=== PATIENT | female | born 1960 | race Caucasian/White ===

== ENCOUNTER 2017-01-17 15:09 | Inpatient (IN) | payer BC, OTHER ==
[~2017-01-17] VITALS: Ht 165.1 cm; Wt 136.0 kg
[~2017-01-17 15:09] MED LIST: ASPI325T32 PO; CLON-379 PO; FURO-109 PO; FURO40TA4 PO; GABA300C16 PO; HYDR-3672 PO; IBUP-1542 PO; LISI20TA11 PO; METO-429 PO; OMEP20CA9 PO; POTA20TA8 PO; TRAM50TA2 PO
[2017-01-17] MEDS ORDERED: ASPIRIN 325 MG TAB PO STA (20:04)
[2017-01-17 20:21] LABS: ADD SCAN DIFF NO
[2017-01-17 20:22] LABS: BASOPHIL # 0.1 10^3/ul (0.0-0.1); BASOPHILS % 0.4 % (0.0-2.0); EOSINOPHILS # 0.1 10^3/ul (0.0-0.5); EOSINOPHILS % 1.1 % (0.0-7.0); HEMATOCRIT 42.3 % (37.0-47.0); HEMOGLOBIN 13.6 g/dl (12.0-16.0); LYMPHOCYTES # 3.9 10^3/ul (0.8-2.9); LYMPHOCYTES % 32.2 % (15.0-51.0); MEAN CORPUSCULAR HGB CONC 32.2 g/dl (32.0-37.0); MEAN CORPUSCULAR VOLUME 90.2 fl (82.0-101.0); MEAN PLATELET VOLUME 10.4 fl (7.4-10.4); MONOCYTE # 0.6 10^3/ul (0.3-0.9); NEUTROPHIL # 7.4 10^3/ul (1.6-7.5); NEUTROPHILS % 60.9 % (39.0-77.0); PLATELET COUNT 350 10^3/UL (140-415); RED BLOOD COUNT 4.69 10^6/ul (4.20-5.40); RED CELL DISTRIBUTION WIDTH 13.2 % (11.5-14.5); WHITE BLOOD COUNT 12.2 10^3/ul (4.8-10.8)
--- NOTE | 2017-01-17 20:34 | RADRPT ---
PROCEDURE: Chest x-ray CLINICAL INDICATION: Chest pain TECHNIQUE: Chest single view COMPARISON: 08/10/2014 FINDINGS: The heart is normal in size. The pulmonary vessels are normal in caliber. The lungs are clear. Th e costophrenic angles are sharp. The visualized bony thorax is unremarkable. IMPRESSION: No acute cardiopulmonary disease. There is questionable enlarged right thyroid lobe with deviation of the trachea to the left. Recomm end correlation with ultrasound RPTAT: HH .Gelacio Perez MD, Date Time Electronically viewed and signed by .Gelacio Perez MD, on 01/17/2017 20:33 .W/
[2017-01-17 20:41] LABS: INR 0.94; PROTIME 12.6 Sec (12.2-14.2)
[2017-01-17 20:42] LABS: ALANINE AMINOTRANSFERASE 47 IU/L (13-69); ALBUMIN 4.8 g/dl (3.3-4.9); ALBUMIN/GLOBULIN RATIO 1.23; ALKALINE PHOSPHATASE 86 IU/L (42-121); ANION GAP 10 (8-16); ASPARTATE AMINO TRANSFERASE 28 IU/L (15-46); BILIRUBIN,INDIRECT 0.1 mg/dl (0-1.1); BILIRUBIN,TOTAL 0.1 mg/dl (0.2-1.3); BLOOD UREA NITROGEN 11 mg/dl (7-20); CALCIUM 9.5 mg/dl (8.4-10.2); CARBON DIOXIDE 31 mmol/L (21-31); CHLORIDE 98 mmol/L (97-110); CREATINE KINASE 48 IU/L (23-200); CREATININE 0.65 mg/dl (0.44-1.00); GLUCOSE 109 mg/dl (70-220); POTASSIUM 3.1 mmol/L (3.5-5.1); SODIUM 136 mmol/L (135-144); TOTAL PROTEIN 8.7 g/dl (6.1-8.1)
[2017-01-17 20:54] LABS: B-TYPE NATRIURETIC PEPTIDE 119 PG/ML (0-125); CK-MB 0.26 ng/ml (0.0-2.4); TROPONIN-I < 0.012 ng/ml (0.00-0.12)
[2017-01-17 21:17] LABS: PARTIAL THROMBOPLASTIN TIME 28.4 Sec (25.0-35.0)
[2017-01-17] MEDS ORDERED: ASPI-664 PO (21:21)
[2017-01-17] MEDS ORDERED: CLON-379 PO (21:22)
[2017-01-17] MEDS ORDERED: FURO40TA4 PO (21:22)
[2017-01-17] MEDS ORDERED: HYDR-3672 PO (21:23)
[2017-01-17] MEDS ORDERED: GABA300C16 PO (21:23)
[2017-01-17] MEDS ORDERED: IBUP-1542 PO (21:24)
[2017-01-17] MEDS ORDERED: LISI20TA11 PO (21:24)
[2017-01-17] MEDS ORDERED: OMEP20CA16 PO (21:25)
[2017-01-17] MEDS ORDERED: METO-448 PO (21:25)
[2017-01-17] MEDS ORDERED: POTA10TA97 PO (21:26)
[2017-01-17] MEDS ORDERED: QUET25TA33 PO (21:27)
[2017-01-17] MEDS ORDERED: ALPR0.5T6 PO (21:28)
--- NOTE | 2017-01-17 21:54 | RADRPT ---
PROCEDURE: US bilateral lower extremity veins. CLINICAL INDICATION: Bilateral leg pain and swelling. TECHNIQUE: Multiple longitudinal and transverse images of the bilateral lower extremity veins were obtained with diaz scale and color Doppler imaging. The common femoral vein, femoral vein, and popl iteal vein were evaluated. 2D grayscale measurements with compression sonography, color Doppler, and pulsed Doppler with augmentation. COMPARISON: No prior studies are available for comparison. FINDINGS: The bilateral common femoral, femoral and popliteal veins are normally compressible throughout. Col or flow demonstrates normal filling of the vessels. Normal waveforms are visualized and there is no rmal response to augmentation. There is a right popliteal fossa Humphrey's cyst measuring 4.5 x 2.9 x 4.4 cm. IMPRESSION: 1. No evidence of deep vein thrombosis involving either lower extremity. 2. Right popliteal fossa Humphrey's cyst measuring 4.5 x 2.9 x 4.4 cm. RPTAT: QQ .Anand Longo MD, MD Date Time Electronically viewed and signed by .Anand Longo MD, on 01/17/2017 21:54 .R/
[2017-01-17 22:37] LABS: D-DIMER 483.99 ng/ml (<460)
[2017-01-17] MEDS ORDERED: POTASSIUM CHLORIDE (SR) 20 MEQ TAB PO ONE (22:50)
[2017-01-17] MEDS ORDERED: ALPRAZOLAM 0.25 MG TAB PO PRN (23:00)
[2017-01-17] MEDS ORDERED: NACL 0.9% 3 ML SYG IV SCH (23:30)
[2017-01-17] MEDS ORDERED: BISACODYL 10 MG SUPP PR PRN (23:30)
[2017-01-17] MEDS ORDERED: NITROGLYCERIN (SL) 0.4 MG TAB SL PRN (23:30)
[2017-01-17] MEDS ORDERED: ACETAMINOPHEN 325 MG TAB PO PRN (23:30)
[2017-01-17] MEDS ORDERED: DOCUSATE SODIUM 100 MG CAP PO PRN (23:30)
[2017-01-17] MEDS ORDERED: hydrALAzine 20 MG INJ IV PRN (23:30)
[2017-01-17] MEDS ORDERED: MAGNESIUM HYDROXIDE 30ML CUP PO PRN (23:30)
[2017-01-17] MEDS ORDERED: QUETIAPINE 25 MG TAB PO PRN (23:30)
[2017-01-17] MEDS ORDERED: ONDANSETRON 4 MG INJ IV PRN (23:30)
[2017-01-17] MEDS ORDERED: IOHEXOL 300MG/ML 150 ML BTL ONE (23:38)
[2017-01-17] MEDS ORDERED: SOD CHLORIDE 0.9% 100 ML ONE (23:38)
[2017-01-17] MEDS: POTASSIUM CHLORIDE (SR) 20 MEQ TAB PO STA ×2 (23:40→23:49)
[2017-01-17] MEDS: IBUPROFEN 600 MG TAB PO PRN (23:51)
--- NOTE | 2017-01-18 00:46 | RADRPT ---
PROCEDURE: CT chest with contrast/PE protocol CLINICAL INDICATION: Chest pain and shortness of breath. Possible pulmonary embolism TECHNIQUE: The study was performed from the thoracic inlet to the upper abdomen with the use of 10 0 cc of Omnipaque-300 intravenous contrast material per PE protocol. Coronal/sagittal reformatted im ages and coronal MIP images were generated. The images were reviewed on a PACS workstation. CTDIvol = 62.32 mGy and DLP= 801.63 mGycm. COMPARISON: Chest x-ray 01/17/2017 FINDINGS: Lungs, airway and pleura: The trachea and bronchi are patent as well as normal in caliber with trac heal deviation to the left caused by right thyroid lobe enlargement. There is no evidence of infilt rate or mass. A subpleural noncalcified smoothly marginated pulmonary nodule in the left superior s egment of the lower lobe measures approximately 8 x 7 mm (series 4 image 74). The pleural spaces ar e clear, without effusions. Mediastinum, cricket and cardiovascular: The heart is normal in size. There is no evidence for perica rdial effusion. The thoracic aorta is normal in caliber and without evidence of dissection. Mild a therosclerotic calcification of the aortic arch is noted.There are no filling defects within the pul monary arteries to suggest emboli. There is no evidence for hilar mass and no mediastinal adenopath y is present. The esophagus is normal in caliber. Osseous structures and musculoskeletal findings: Bridging syndesmophytes of the thoracolumbar junct ion are present. There is no evidence of acute osseous abnormality, lytic or blastic lesion. No ch est wall abnormalities are present. The axillary regions are unremarkable. Visualized upper abdomen: No abnormalities are identified. The adrenal glands are normal bilateral ly. RPTAT:HJJR IMPRESSION: 1. No evidence for pulmonary embolism. 2. Approximately 8 x 7 mm noncalcified subpleural superior segment with pulmonary nodule. Follow-up evaluation should be based upon Fleischner criteria. 3. Tracheal deviation to the left of midline as seen on the chest x-ray caused by a thyroid goiter, the right thyroid lobe larger than the left. 4. Aortic atherosclerosis is present. Julian Aguila, Physician Date Time Electronically viewed and signed by Julian Sheehan, Physician on 01/18/2017 00:45 JR/
[2017-01-18 01:57] LABS: ADD UMIC NO; UR ASCORBIC ACID 40 mg/dL (NEGATIVE); UR BACTERIA FEW /HPF (NONE SEEN); UR BILIRUBIN (Dip) NEGATIVE (NEGATIVE); UR BLOOD (Dip) NEGATIVE (NEGATIVE); UR CLARITY SLIGHTLY CLOUDY (CLEAR); UR COLOR YELLOW (YELLOW); UR GLUCOSE (Dip) NEGATIVE (NEGATIVE); UR KETONES (Dip) NEGATIVE (NEGATIVE); UR LEUKOCYTE ESTERASE (Dip) NEGATIVE Leu/ul (NEGATIVE); UR MUCUS FEW /HPF (NONE SEEN); UR NITRITE (Dip) NEGATIVE (NEGATIVE); UR RBC 3 /HPF (0-5); UR SPECIFIC GRAVITY (Dip) 1.023 (1.003-1.030); UR TOTAL PROTEIN (Dip) NEGATIVE (NEGATIVE); UR UROBILINOGEN (Dip) NEGATIVE (NEGATIVE)
[2017-01-18 02:10] LABS: PROTEIN URINE < 5.0 mg/dl (0.0-11.9)
[2017-01-18 04:35] LABS: ADD SCAN DIFF NO
[2017-01-18 04:46] LABS: BASOPHIL # 0.1 10^3/ul (0.0-0.1); BASOPHILS % 0.5 % (0.0-2.0); EOSINOPHILS # 0.2 10^3/ul (0.0-0.5); HEMATOCRIT 35.4 % (37.0-47.0); HEMOGLOBIN 11.4 g/dl (12.0-16.0); LYMPHOCYTES # 3.6 10^3/ul (0.8-2.9); LYMPHOCYTES % 34.9 % (15.0-51.0); MEAN CORPUSCULAR HEMOGLOBIN 28.9 pg (29.0-33.0); MEAN CORPUSCULAR HGB CONC 32.2 g/dl (32.0-37.0); MEAN CORPUSCULAR VOLUME 89.6 fl (82.0-101.0); MEAN PLATELET VOLUME 10.7 fl (7.4-10.4); MONOCYTE # 0.6 10^3/ul (0.3-0.9); MONOCYTES % 6.1 % (0.0-11.0); NEUTROPHIL # 5.8 10^3/ul (1.6-7.5); NEUTROPHILS % 56.2 % (39.0-77.0); PLATELET COUNT 282 10^3/UL (140-415); RED BLOOD COUNT 3.95 10^6/ul (4.20-5.40); RED CELL DISTRIBUTION WIDTH 13.2 % (11.5-14.5); WHITE BLOOD COUNT 10.2 10^3/ul (4.8-10.8)
[2017-01-18 05:00] LABS: ALBUMIN/GLOBULIN RATIO 1.37; BILIRUBIN,INDIRECT 0.2 mg/dl (0-1.1); BILIRUBIN,TOTAL 0.2 mg/dl (0.2-1.3); CALCIUM 9.2 mg/dl (8.4-10.2); CHOL/HDL RATIO 5.3 RATIO; CREATININE 0.7 mg/dl (0.44-1.00); MAGNESIUM 2.1 mg/dl (1.7-2.5); POTASSIUM 3.5 mmol/L (3.5-5.1); TOTAL PROTEIN 6.9 g/dl (6.1-8.1)
[2017-01-18 05:18] LABS: CREATINE KINASE 37 IU/L (23-200)
[2017-01-18 05:30] LABS: CK-MB 0.23 ng/ml (0.0-2.4); THYROID STIMULATING HORMONE 0.87 MIU/L (0.465-4.680)
[2017-01-18 05:35] LABS: TROPONIN-I < 0.012 ng/ml (0.00-0.12)
[2017-01-18] MEDS ORDERED: FUROSEMIDE 40 MG INJ IV SCH (06:00)
[2017-01-18 08:11] VITALS: TEMP 98.4
[2017-01-18] MEDS ORDERED: LISINOPRIL 20 MG TAB PO SCH (09:00)
[2017-01-18] MEDS ORDERED: ENOXAPARIN 40 MG/0.4 ML SYG SC SCH (09:00)
[2017-01-18] MEDS ORDERED: METOPROLOL 25 MG TAB PO SCH (09:00)
[2017-01-18] MEDS ORDERED: ASPIRIN (EC) 81 MG TAB PO SCH (09:00)
[2017-01-18] MEDS ORDERED: FAMOTIDINE 20 MG TAB PO SCH (09:00)
[2017-01-18 09:17] VITALS: Ht 165.1 cm; Wt 136.0 kg
[2017-01-18 09:17] LABS: CREATINE KINASE 38 IU/L (23-200)
[2017-01-18 09:28] LABS: CK-MB 0.25 ng/ml (0.0-2.4)
[2017-01-18 09:29] LABS: TROPONIN-I < 0.012 ng/ml (0.00-0.12)
--- NOTE | 2017-01-18 11:51 | ERA ---
ER Documentation Chief Complaint Date/Time DATE: 01/18/17 TIME: 11:45 Chief Complaint nausea, left side arm pain and numbness HPI This is a very pleasant 56-year-old female that presents to the emergency department complaining of chest tenderness has been present for the past 24 hours. The patient indicates that the chest tenderness is a pressure-like sensation that has been intermittent over the past 24 hours. The pain will last for roughly 30 minutes and spontaneously resolved when the patient experiences the chest pressure she also indicates that the pain radiates to her left arm where she will experience some numbness and tingling. She stated she felt very nauseous at the onset of the chest pressure. She denied any emesis. She denied a headache dizziness or vertigo. She has had no fevers or shaking or chills. She denies any shortness of breath at rest or exertion and no recent travel. She does states she has a known history of peripheral edema and takes Lasix for her leg swelling but denies any calf tenderness. She has a history of high blood pressure and takes Lopressor. She states she has been compliant with her medications. ROS All systems reviewed and are negative except as per history of present illness. Medications Home Meds Reported Medications Alprazolam* (Alprazolam*) 0.5 Mg Tablet, 0.5 MG PO NEEDED Y for ANXIETY, TAB 01/17/17 Quetiapine Fumarate* (Quetiapine Fumarate*) 25 Mg Tablet, 25 MG PO HS Y for PRN , TAB 01/17/17 Potassium Chloride (Klor-Con) 10 Meq Tablet.sa, 10 MEQ PO QAM, TAB.SA 01/17/17 Omeprazole* (Omeprazole*) 20 Mg Capsule.dr, 20 MG PO QAM, #30 CAP 01/17/17 Metoprolol Tartrate* (Lopressor*) 25 Mg Tab, 25 MG PO BID, #60 TAB 01/17/17 Lisinopril* (Lisinopril*) 20 Mg Tablet, 20 MG PO BID, #30 TAB 01/17/17 Ibuprofen* (Ibuprofen*) 600 Mg Tablet, 600 MG PO Q8 Y for PAIN, TAB 01/17/17 Hydralazine Hcl* (Hydralazine Hcl*) 50 Mg Tab, 50 MG PO BID, #60 TAB 01/17/17 Gabapentin* (Gabapentin*) 300 Mg Capsule, 300 MG PO DAILY, #30 CAP 01/17/17 Furosemide* (Furosemide*) 40 Mg Tablet, 40 MG PO BID, TAB 01/17/17 Clonidine Hcl* (Clonidine Hcl*) 0.1 Mg Tab, 0.1 MG PO DAILY Y for HTN, TAB 01/17/17 Aspirin* (Aspirin* EC) 81 Mg Tablet.dr, 81 MG PO DAILY, TAB 01/17/17 Discontinued Reported Medications Metoprolol Tartrate* (Lopressor*) 50 Mg Tab, 50 MG PO BID, TAB 09/19/14 Furosemide* (Furosemide*) 40 Mg Tablet, 40 MG PO BID, TAB 09/19/14 Hydralazine Hcl* (Hydralazine Hcl*) 50 Mg Tablet, 50 MG PO Q8, TAB 09/19/14 Tramadol HCl (Tramadol HCl) 50 Mg Tab, 50 MG PO TID, TAB 09/19/14 Clonidine Hcl* (Clonidine Hcl*) 0.1 Mg Tab, 0.1 MG PO Q8, TAB 09/19/14 Lisinopril* (Lisinopril*) 20 Mg Tablet, 20 MG PO BID, TAB 09/19/14 Aspirin* (Aspirin* EC) 325 Mg Tab, 325 MG PO DAILY, TAB 09/19/14 Ibuprofen* (Ibuprofen*) 600 Mg Tablet, 600 MG PO Q8, TAB 08/11/14 Potassium Chloride* (Klor-Con*) 10 Meq Tabsr, 10 MEQ PO DAILY, TAB.SA 08/11/14 Gabapentin* (Gabapentin*) 300 Mg Capsule, 300 MG PO TID, CAP 08/11/14 Omeprazole* (Prilosec*) 20 Mg Capsule.dr, 20 MG PO DAILY, CAP 11/23/13 Discontinued Scripts Furosemide* (Lasix*) 40 Mg Tablet, 40 MG PO BID for 30 Days, TAB 1 Refill Prov:STEVE EVANS MD 08/13/14 Allergies Allergies: Coded Allergies: No Known Allergy (Unverified , 01/17/17) PMhx/Soc History of Surgery: Yes (appedectomy and hysterectomy) Anesthesia Reaction: No Hx Neurological Disorder: No Hx Respiratory Disorders: Yes (sleep apnea) Hx Cardiac Disorders: Yes (hypertension) Hx Psychiatric Problems: Yes (depression, anxiety) Hx Miscellaneous Medical Probl: Yes (HTN, anxiety, depression, obesity, DM, CTS , hysterectomy, appendectomy, ) Hx Alcohol Use: No Hx Substance Use: No Hx Tobacco Use: No Smoking Status: Never smoker Physical Exam Vitals Vital Signs Date Time Temp Pulse Resp B/P Pulse Ox O2 Delivery O2 Flow Rate FiO2 01/17/17 20:28 97.0 68 18 145/71 98 Room Air 01/17/17 20:09 Nasal Cannula 01/17/17 19:15 97.1 75 18 206/94 98 01/17/17 15:12 98.4 73 20 186/95 97 Physical Exam Constitutional:Well-developed. Well-nourished. HEENT:Normocephalic. Atraumatic.Pupils were equal round reactive to light. Moist mucous membranes.No tonsillar exudates. Neck: No nuchal rigidity. No lymphadenopathy. No posterior cervical spine tenderness or step-offs. Respiratory: Not using accessory muscles of respiration.Lungs were clear to auscultation bilaterally. No rhonchi. No rales. No wheezing. Cardiovascular: Regular rate regular rhythm.No murmurs. No rubs were appreciated.S1, S2 normal. Distal pulses are palpable 2+ bilaterally. GI: Abdomen was soft. Nontender. Non Distended. No pulsatile abdominal masses or bruits. No rebound. No guarding. Bowel sounds were present and normal. Muscle skeletal: Full range of motion of both the upper and lower extremities bilaterally.Normal muscle tone.No assymetrical calf tenderness or swelling. 1+ pitting edema the bilateral lower extremities Skin: No petechia, no purpura. No lesions on the palms or the soles of the feet. No maculopapular rash. NEURO: Patient was alert, awake, orientated x3.No facial droop. Gait observed and normal with no ataxia.Speech had regular rate and rhythm. No focal neurological deficits. Result Diagram: 01/18/17 0416 01/18/17 0416 Results 24 hrs Laboratory Tests Test 01/17/17 20:10 White Blood Count 12.210^3/ul Red Blood Count 4.6910^6/ul Hemoglobin 13.6g/dl Hematocrit 42.3% Mean Corpuscular Volume 90.2fl Mean Corpuscular Hemoglobin 29.0pg Mean Corpuscular Hemoglobin Concent 32.2g/dl Red Cell Distribution Width 13.2% Platelet Count 69545^3/UL Mean Platelet Volume 10.4fl Neutrophils % 60.9% Lymphocytes % 32.2% Monocytes % 5.0% Eosinophils % 1.1% Basophils % 0.4% Nucleated Red Blood Cells % 0.0/100WBC Neutrophils # 7.410^3/ul Lymphocytes # 3.910^3/ul Monocytes # 0.610^3/ul Eosinophils # 0.110^3/ul Basophils # 0.110^3/ul Nucleated Red Blood Cells # 0.010^3/ul Prothrombin Time 12.6Sec Prothrombin Time Ratio 1.0 INR International Normalized Ratio 0.94 Activated Partial Thromboplast Time 28.4Sec D-Dimer 483.99ng/ml D-Dimer Comment Sodium Level 136mmol/L Potassium Level 3.1mmol/L Chloride Level 98mmol/L Carbon Dioxide Level 31mmol/L Anion Gap 10 Blood Urea Nitrogen 11mg/dl Creatinine 0.65mg/dl Glucose Level 109mg/dl Calcium Level 9.5mg/dl Total Bilirubin 0.1mg/dl Direct Bilirubin 0.00mg/dl Indirect Bilirubin 0.1mg/dl Aspartate Amino Transf (AST/SGOT) 28IU/L Alanine Aminotransferase (ALT/SGPT) 47IU/L Alkaline Phosphatase 86IU/L Creatine Kinase 48IU/L Creatine Kinase Index 0.5 Creatinine Kinase MB (Mass) 0.26ng/ml Troponin I < 0.012ng/ml B-Type Natriuretic Peptide 119PG/ML Total Protein 8.7g/dl Albumin 4.8g/dl Globulin 3.90g/dl Albumin/Globulin Ratio 1.23 Current Medications Medications (Trade) Dose Ordered Sig/Latricia Route PRN Reason Start Time Stop Time Status Last Admin Dose Admin Aspirin (Aspirin) 325 mg ONCE STAT PO 01/17/17 20:04 01/17/17 20:05 DC 01/17/17 20:32 Potassium Chloride (Klor-Con 20) 20 meq ONCE ONCE PO 01/17/17 22:50 01/17/17 22:51 DC 01/17/17 23:45 Procedures/MDM The patient presented to the emergency department with chest pain. My clinical evaluation and workup was to distinguish minor causes of chest pain from acute life threatening conditions such as myocardial infarction, pulmonary embolism, aortic dissection, esophageal rupture, cardiac tamponade. The patient was placed on a rickshaw driver and continuous pulse oximetry. IV access established by nursing staff. The patient received 325 mg of aspirin. She was also given Zofran as the patient was experiencing nausea. 12 Lead EKG tracing ordered and reviewed by myself showed: Normal sinus rhythm of 85 bpm and no arrhythmia. VA interval normal. QRS duration normal. No ST segment elevation No ST segment depression. No changes consistent with acute ischemia. The patient indicated while she was in the emergency department she suddenly became short of breath. I reevaluated the patient and she was not hypoxic. However she did undergo a CT scan of her chest which showed no evidence of a pulmonary embolism and this was reviewed by both myself and the radiologist. When the patient was triaged in the emergency department she had severely elevated blood pressure. My differential diagnosis included but was not limited to conditions that could end-organ damage such as acute coronary syndrome, acute pulmonary edema, aortic dissection, subarachnoid hemorrhage, intracerebral hemorrhage, cerebral infarction, withdrawal syndromes from beta blockers, or states of catecholamine excess such as pheochromocytoma or drug intoxication. The patient's blood pressure improved after receiving aspirin and nausea peer Ancillary lab work was obtained. There was no elevation in the BUN and creatinine to suggest acute renal failure. Electrolytes were normal. Cardiac enzyme was normal and the 12 lead EKG showed no acute ischemic changes or left ventricular hypertrophy. The patient will be admitted for observation under the care of Dr. Rodríguez for serial 12-lead EKG tracings and cardiac set of enzymes Departure Diagnosis: Primary Impression: Chest pain Qualified Code: R07.9 - Chest pain, unspecified type Additional Impression: Hypertensive urgency Condition: Stable JAIME UMANA Jan 18, 2017 11:51
[2017-01-18 12:04] VITALS: PULSE 62
[2017-01-18] MEDS: IBUPROFEN 600 MG TAB PO PRN (12:07)
--- NOTE | 2017-01-18 12:50 | RADRPT ---
Echocardiogram Report Patient Name: ANABEL RODRIGUEZ Gender: Female Date: 1960 Study Date: 18-Jan-2017 Senior Stock Plan Administrator: Arturo Castillo RDCS Location: [facility] Ref. Physician: KASIE HAWKINS Quality: Adequate Procedures: Transthoracic echocardiogram with complete 2D, M-Mode, and doppler examination. Indications: Evaluate Left Ventricular function. Anasarca. 2D/M Mode Doppler Measurement Value Normal Ranges Measurement Value Normal Ranges LVIDd 2D 5.1 3.5 - 5.6 cm AV Peak Iraj 1.6 m/sec LVIDs 2D 3.4 2.1 - 4.1 cm AV Peak PG 10.0 mmHg FS 2D 32.3 % LVOT Peak Iraj 1.4 m/sec LVPWd 2D 1.0 0.6 - 1.1 cm LVOT Peak PG 8.0 mmHg IVSd 2D 1.0 0.6 - 1.1 cm MV E Peak Iraj 0.6 m/sec IVS/LVPW 2D 1.1 MV A Peak Iraj 0.7 m/sec AoR Diam 2D 2.9 2.0 - 3.7 cm MV E/A 0.8 LA/Ao 2D 1 0 - 1 MV Decel Time 169 msec EDV 2D 129.0 cm3 MV E/A 0.8 ESV 2D 40.0 cm3 TR Peak Iraj 1.9 m/sec LA Dimen 2D 3.6 2.3 - 4.0 cm TR Peak PG 14.0 mmHg RVSP 17.0 mmHg Findings Left Ventricle: Normal left ventricular systolic function. Normal left ventricular cavity size. Normal left ventricular wall thickness. Ejection fraction is visually estimated at 60 %. Tissue Doppler/Mitral Doppler indices are consistent with impaired relaxation (Stage I diastolic dysfunction). Right Ventricle: Normal right ventricular size. Normal right ventricular systolic function. Left Atrium: The left atrium is normal in size. Right Atrium: The right atrium is normal in size. Mitral Valve: Normal appearance and function of the mitral valve with trace physiologic regurgitation. Aortic Valve: Normal appearance of the aortic valve. No significant aortic stenosis or insufficiency. Tricuspid Valve: Normal appearance of the tricuspid valve. Estimated peak PA systolic pressure 17 mmHg. There is trace tricuspid regurgitation. Pulmonic Valve: Normal pulmonic valve appearance. Pericardium: Normal pericardium with no significant pericardial effusion. Aorta: Normal aortic root. IVC: Normal size and normal respiratory collapse consistent with normal right atrial pressure. Conclusions Normal left ventricular systolic function. Normal left ventricular cavity size. Normal left ventricular wall thickness. Ejection fraction is visually estimated at 60 %. Tissue Doppler/Mitral Doppler indices are consistent with impaired relaxation (Stage I diastolic dysfunction). Normal right ventricular size. Normal right ventricular systolic function. The left atrium is normal in size. The right atrium is normal in size. No significant valvular stenosis or regurgitation seen. Normal pericardium with no significant pericardial effusion. Electronically Signed By: Hardeep Jules 18-Jan-2017 12:49:59 -0700 Patient Name: ANABEL RDORIGUEZ Study Date: 18-Jan-[id number]
--- NOTE | 2017-01-18 12:51 | HP ---
Date/Time of Note Date/Time of Note DATE: 01/18/17 TIME: 12:02 Assessment/Plan VTE Prophylaxis VTE Prophylaxis Intervention: LMWH Lines/Catheters IV Catheter Type (from [facility]): [facility] Urinary Cath still in place: No Assessment/Plan Assessment/Plan 56-year-old female: 1. Chest pain, atypical, reproducible with associated left shoulder pain and decreased range of motion of the left shoulder. Patient with known arthritis. Cardiac enzymes negative 3, EKG stable, 2D echocardiogram done and results pending. Patient was also significantly hypertensive on admission which is better controlled. Continue current medications. Continue baby aspirin Cardiology evaluation 2. Severe hypertension, better control now that patient back on her outpatient regimen. 3. Lower extremity edema, much improved this morning status post IV Lasix. Patient to be discharged back on oral Lasix. She needs to use compression stockings as she probably has poor venous return. 4. Arthritis, rule out inflammatory arthritis. Given shoulder pain patient has left shoulder x-ray pending. Continue anti-inflammatory patient okay to use ibuprofen versus Tylenol. Check a rheumatoid factor and ESR. 5. Reported history of thyroid nodule, thyroid function testing within normal, thyroid ultrasound pending and further workup for intervention to be done as an outpatient. 6. Left shoulder pain: X-ray pending. Prophylaxis: Protonix for GI prophylaxis, Lovenox for prophylaxis Disposition: Pending current studies if all negative patient will be discharged home later today with outpatient primary care physician follow up HPI/ROS Admit Date/Time Admit Date/Time Jan 17, 2017 at 22:56 ROS Chief complaint: Pleuritic chest pain, left shoulder pain History of presenting illness: This is a 56-year-old female with history of severe hypertension, morbid obesity, arthritis, carpal tunnel syndrome who presented emergency department with multiple complaints but mainly with acute onset of sharp pain on her left side of her chest and also epigastric area, some headache, patient was found to be hypertensive with systolic blood pressures in the 200. Given her complaints of pleuritic chest pain in nature and some shortness of breath and also her morbid obesity, patient had a CT angiogram of the chest which did not show any pulmonary emboli. Cardiac enzymes have been negative 3 , 2D echocardiogram is pending. Patient blood pressure is better controlled this morning with resumption of her outpatient regimen. After a long discussion the patient did report that she was lost to follow-up as she switch insurances, she has not been able to follow- up with her stereo plotter operator, she has been requesting multiple subspecialty referral but unable to follow-up due to inability to get on the schedule. She reports that she has a history of thyroid nodule however her thyroid function testing is within normal, thyroid ultrasound is pending for follow-up. Her chest pain is actually reproducible to palpation and seems to be related to her left shoulder pain. Patient reports that she has known arthritis and decreased range of motion on the left shoulder for months. She also reported increased lower extremity edema, it is much improved as of today she is to resume her Lasix oral. She was told to use compression stockings but reports that she was not comfortable with it and therefore has not been using it. She is much improved this morning Constitutional: no complaints Eyes: no complaints ENT: no complaints Respiratory: pleuritic pain Gastrointestinal: no complaints Skin: no complaints Neurologic: no complaints PMH/Family/Social Past Medical History Medical History: congestive heart failure (Diastolic dysfunction likely), GERD , hypertension, other (Morbid obesity) Past Surgical History Past Surgical Hx: appendectomy, other (Hysterectomy) Social History Alcohol Use: none Smoking Status: Never smoker Drug Use: none Exam/Review of Systems Vital Signs Vitals Vital Signs Date Time Temp Pulse Resp B/P Pulse Ox O2 Delivery O2 Flow Rate FiO2 01/18/17 08:11 98.4 78 17 122/66 100 Room Air Exam Constitutional: alert, oriented, other (Morbidly obese), well developed Respiratory: clear to auscultation, normal air movement Cardiovascular: nl pulses, regular rate and rhythm Gastrointestinal: non-tender, soft Extremities: edema (Trace to +1), normal pulses, other (No clubbing or cyanosis ) Neurological: MEAT STOCKER II-XII intact, nl mental status, nl speech, nl strength Labs Result Diagram: 01/18/176 01/18/17415 Medications Medications Current Medications Alprazolam (Xanax) 0.5 mg Q8H PRN PO ANXIETY; Start 01/17/17 at 23:00 Aspirin (Halfprin) 81 mg DAILY PO Last administered on 01/18/17t 10:02; Admin Dose 81 MG; Start 01/18/17 at 09:00 Clonidine (Catapres) 0.1 mg Q12 PRN PO ELEVATED BLOOD PRESSURE; Start 01/17/17 at 23:30 Hydralazine HCl (Apresoline) 50 mg TID PO Last administered on 01/18/17 10:04 ; Admin Dose 50 MG; Start 01/18/17 at 09:00 Ibuprofen (Motrin) 600 mg Q8 PRN PO PAIN Last administered on 01/17/17 23:51; Admin Dose 600 MG; Start 01/17/17 at 23:30 Lisinopril (Zestril) 20 mg BID PO Last administered on 01/18/17 10:03; Admin Dose 20 MG; Start 01/18/17 at 09:00 Metoprolol Tartrate (Lopressor) 25 mg BID PO ; Start 01/18/17 at 09:00 Quetiapine Fumarate (Seroquel) 25 mg HS PRN PO AGITATION; Start 01/17/17 at 23: 30 Ondansetron HCl (Zofran Inj) 4 mg Q6H PRN IV NAUSEA AND/OR VOMITING; Start at 23:30 Nitroglycerin (Nitroglycerin (Sl Tab) 0.4 Mg) 1 tab Q5M PRN SL CHEST PAIN; Start 01/17/17 at 23:30 Acetaminophen (Tylenol Tab) 650 mg Q6H PRN PO PAIN LEVEL 1-3 OR FEVER; Start at 23:30 Docusate Sodium (Colace) 100 mg Q12H PRN PO CONSTIPATION; Start 01/17/17 at 23: 30 Magnesium Hydroxide (Milk Of Mag) 30 ml DAILY PRN PO CONSTIPATION; Start at 23:30 Bisacodyl (Dulcolax Supp) 10 mg DAILY PRN NC CONSTIPATION; Start 01/17/17 at 23 :30 Famotidine (Pepcid) 20 mg Q12 PO Last administered on 01/18/17 10:03; Admin Dose 20 MG; Start 01/18/17 at 09:00 Enoxaparin Sodium (Lovenox) 40 mg DAILY SC Last administered on 01/18/17 10:07 ; Admin Dose 40 MG; Start 01/18/17 at 09:00 Hydralazine HCl (Apresoline) 10 mg Q6H PRN IV ELEVATED BLOOD PRESSURE; Start at 23:30 SABAS HAWKINS Jan 18, 2017 12:16
--- NOTE | 2017-01-18 13:07 | PDOCDIS ---
Discharge Instructions CONDITION Patient Condition: Good HOME CARE INSTRUCTIONS: Diet Instructions: 2gm Na ACTIVITY: Activity Restrictions: No Restrictions FOLLOW UP/APPOINTMENTS Follow-up Plan Follow-up with primary care physician within 1 week patient needs referral to cardiology as needed, rheumatology as needed, and orthopedic surgery as she claims that she already has authorization but needs an appointment for release of carpal tunnel syndrome. SABAS HAWKINS Jan 18, 2017 13:07
[2017-01-18] MEDS ORDERED: HYDR-3672 PO (13:08)
[2017-01-18 13:21] VITALS: BP 139/66; PULSE 66; RESP 16
--- NOTE | 2017-01-18 13:39 | CONS ---
Date/Time of Note Date/Time of Note DATE: 01/18/17 TIME: 13:32 Assessment/Plan Assessment/Plan Additional Assessment/Plan Shoulder, back and chest pain Hypertension Preserved ejection fraction Anxiety and depression Morbid obesity -Patient's symptoms of chest discomfort began with initially left shoulder pain with arm movements and progressive back and chest pain. Her chest discomfort is elicited with palpation of the chest wall and movements of the left arm. Serial cardiac enzymes have remained negative, ECG without any significant abnormalities and echocardiogram with preserved ejection fraction. On review of records, patient with normal cardiac nuclear perfusion study done in 2014 and 2013 at our facility. Furthermore, her blood pressure was not well- controlled upon initial evaluation. With patient receiving her medications in house, her blood pressure is well controlled. CT chest done does not demonstrate any evidence of pulmonary vascular congestion or fluid overload, would switch Lasix back to her home dose regimen. Given the atypical symptoms and negative workup so far, her symptoms do not appear cardiac in origin and no further inpatient cardiac workup needed at the current time. Consultation Date/Type/Reason Admit Date/Time Jan 17, 2017 at 22:56 Type of Consultation: cv Reason for Consultation Chest pain Hx of Present Illness This is a 56-year-old female with past medical history of hypertension, arthritis, obesity, anxiety and depression who presents with multiple complaints. Patient states approximately 3 days ago, she developed severe worsening left shoulder pain. Patient unable to lift her arm because of severe pain. Over the next few days, the pain began radiating to her back and to her chest. Pain is sharp-like in nature and at times stabbing like with arm movements. Pain is worse with palpation of her chest wall. When pain is severe , she feels short of breath. Because of the worsening discomfort, she came to the emergency room for evaluation and care. When patient was initially evaluated, systolic blood pressure was in the 200s. In discussing medication compliance, she tells me she takes her hydralazine and Lasix every day and clonidine as needed. She currently feels better with main complaint of shoulder and back pain. She otherwise denies exertional chest pain. At times she does get short of breath but not usually associated with activity. She does complain of chronic lower extremity edema and that is why she is on her Lasix. 12 point review of systems was performed with all pertinent positives and negatives mentioned above and all else is negative Eyes: no complaints ENT: no complaints Respiratory: pleuritic pain Gastrointestinal: no complaints Skin: no complaints Neurologic: no complaints Past Medical History Medical History: congestive heart failure (Diastolic dysfunction likely), GERD , hypertension, other (Morbid obesity) Past Surgical History Past Surgical Hx: appendectomy, other (Hysterectomy) Family History Significant Family History: no pertinent family hx Social History Alcohol Use: none Smoking Status: Never smoker Drug Use: none Exam/Review of Systems Vital Signs Vitals Vital Signs Date Time Temp Pulse Resp B/P Pulse Ox O2 Delivery O2 Flow Rate FiO2 01/18/17 13:21 66 16 139/66 97 Room Air 01/18/17 08:11 98.4 Exam No apparent distress, speaking on the phone, no dyspnea Constitutional: alert, obese, oriented Head: normocephalic Respiratory: clear to auscultation, normal air movement Cardiovascular: other (S1-S2 heard, no murmurs appreciated), regular rate and rhythm Gastrointestinal: bowel sounds, non-tender, other (No guarding), soft Musculoskeletal: other (Pain with palpation of chest wall and with movements of left arm) Extremities: edema Results Result Diagram: 01/18/17 0416 01/18/17 0416 Results 24 hrs Laboratory Tests Test 01/17/17 20:10 01/18/17 00:00 01/18/17 04:16 01/18/17 08:27 White Blood Count 12.2 H 10.2 Red Blood Count 4.69 3.95 L Hemoglobin 13.6 11.4 L Hematocrit 42.3 35.4 L Mean Corpuscular Volume 90.2 89.6 Mean Corpuscular Hemoglobin 29.0 28.9 L Mean Corpuscular Hemoglobin Concent 32.2 32.2 Red Cell Distribution Width 13.2 13.2 Platelet Count 350 282 Mean Platelet Volume 10.4 10.7 H Neutrophils % 60.9 56.2 Lymphocytes % 32.2 34.9 Monocytes % 5.0 6.1 Eosinophils % 1.1 2.0 Basophils % 0.4 0.5 Nucleated Red Blood Cells % 0.0 0.0 Neutrophils # 7.4 5.8 Lymphocytes # 3.9 H 3.6 H Monocytes # 0.6 0.6 Eosinophils # 0.1 0.2 Basophils # 0.1 0.1 Nucleated Red Blood Cells # 0.0 0.0 Prothrombin Time 12.6 Prothrombin Time Ratio 1.0 INR International Normalized Ratio 0.94 Activated Partial Thromboplast Time 28.4 D-Dimer 483.99 H D-Dimer Comment Sodium Level 136 134 L Potassium Level 3.1 L 3.5 Chloride Level 98 101 Carbon Dioxide Level 31 30 Anion Gap 10 7 L Blood Urea Nitrogen 11 14 Creatinine 0.65 0.70 Glucose Level 109 102 Calcium Level 9.5 9.2 Total Bilirubin 0.1 L 0.2 Direct Bilirubin 0.00 0.00 Indirect Bilirubin 0.1 0.2 Aspartate Amino Transf (AST/SGOT) 28 23 Alanine Aminotransferase (ALT/SGPT) 47 36 Alkaline Phosphatase 86 66 Creatine Kinase 48 37 38 Creatine Kinase Index 0.5 0.6 0.7 Creatinine Kinase MB (Mass) 0.26 0.23 0.25 Troponin I < 0.012 < 0.012 < 0.012 B-Type Natriuretic Peptide 119 Total Protein 8.7 H 6.9 # Albumin 4.8 4.0 Globulin 3.90 H 2.90 Albumin/Globulin Ratio 1.23 1.37 Urine Color YELLOW Urine Clarity SLIGHTLY CLOUDY A Urine pH 6.0 Urine Specific [place] 1.023 Urine Ketones NEGATIVE Urine Nitrite NEGATIVE Urine Bilirubin NEGATIVE Urine Urobilinogen NEGATIVE Urine Leukocyte Esterase NEGATIVE Urine Microscopic RBC 3 Urine Microscopic WBC 0 Urine Bacteria FEW A Urine Mucus FEW A Urine Hemoglobin NEGATIVE Urine Random Creatinine 200.29 Urine Glucose NEGATIVE Urine Total Protein < 5.0 Hemoglobin A1c 5.9 Magnesium Level 2.1 Triglycerides Level 194 H Cholesterol Level 159 LDL Cholesterol, Calculated 90 HDL Cholesterol 30 L Cholesterol/HDL Ratio 5.3 Thyroid Stimulating Hormone (TSH) 0.870 Free Thyroxine 1.14 Medications Medications Current Medications Alprazolam (Xanax) 0.5 mg Q8H PRN PO ANXIETY; Start 01/17/17 at 23:00 Aspirin (Halfprin) 81 mg DAILY PO Last administered on 01/18/17 10:02; Admin Dose 81 MG; Start 01/18/17 at 09:00 Clonidine (Catapres) 0.1 mg Q12 PRN PO ELEVATED BLOOD PRESSURE; Start 01/17/17 at 23:30 Hydralazine HCl (Apresoline) 50 mg TID PO Last administered on 01/18/17 13:25 ; Admin Dose 50 MG; Start 01/18/17 at 09:00 Ibuprofen (Motrin) 600 mg Q8 PRN PO PAIN Last administered on 01/18/17 12:07; Admin Dose 600 MG; Start 01/17/17 at 23:30 Lisinopril (Zestril) 20 mg BID PO Last administered on 01/18/17 10:03; Admin Dose 20 MG; Start 01/18/17 at 09:00 Metoprolol Tartrate (Lopressor) 25 mg BID PO ; Start 01/18/17 at 09:00 Quetiapine Fumarate (Seroquel) 25 mg HS PRN PO AGITATION; Start 01/17/17 at 23: 30 Ondansetron HCl (Zofran Inj) 4 mg Q6H PRN IV NAUSEA AND/OR VOMITING; Start at 23:30 Nitroglycerin (Nitroglycerin (Sl Tab) 0.4 Mg) 1 tab Q5M PRN SL CHEST PAIN; Start 01/17/17 at 23:30 Acetaminophen (Tylenol Tab) 650 mg Q6H PRN PO PAIN LEVEL 1-3 OR FEVER Last administered on 01/18/17 12:06; Admin Dose 650 MG; Start 01/17/17 at 23:30 Docusate Sodium (Colace) 100 mg Q12H PRN PO CONSTIPATION; Start 01/17/17 at 23: 30 Magnesium Hydroxide (Milk Of Mag) 30 ml DAILY PRN PO CONSTIPATION; Start at 23:30 Bisacodyl (Dulcolax Supp) 10 mg DAILY PRN [place] CONSTIPATION; Start 01/17/17 at 23 :30 Famotidine (Pepcid) 20 mg Q12 PO Last administered on 01/18/17 10:03; Admin Dose 20 MG; Start 01/18/17 at 09:00 Enoxaparin Sodium (Lovenox) 40 mg DAILY SC Last administered on 01/18/17 10:07 ; Admin Dose 40 MG; Start 01/18/17 at 09:00 Hydralazine HCl (Apresoline) 10 mg Q6H PRN IV ELEVATED BLOOD PRESSURE; Start at 23:30 Procedures Procedures ECG demonstrates sinus rhythm, normal QRS duration, nonspecific ST abnormality Hardeep Jules DO Jan 18, 2017 13:39
--- NOTE | 2017-01-18 15:16 | RADRPT ---
PROCEDURE: US thyroid. CLINICAL INDICATION: 56-year-old female with an enlarged thyroid and history of thyroid nodules. TECHNIQUE: Multiple sonographic images of the thyroid were obtained utilizing a linear array trans ducer with grayscale and color-flow and a Doppler imaging. The images were reviewed on a [employer] PACS workstation. COMPARISON: No prior studies are available for comparison. FINDINGS: The thyroid gland is inhomogeneous in echogenicity and enlarged in size. The right lobe measures 6.8 sagittal by 3.7 x 3.3 cm. The right lobe of the thyroid gland contains a inhomogeneous echogenic thyroid nodule measuring 3.2 x 2.9 x 3.1 cm with suspected internal calcif ications and increased internal blood flow. Biopsy is recommended. The left lobe measures 1.5 cm transverse by 1.5 cm AP by 5.5 cm sagittal. The isthmus measures 4.8 mm . IMPRESSION: 1. Ultrasound-guided biopsy is recommended for further evaluation of a inhomogeneous predominant so lid nodule measuring 3.2 x 3.1 x 2.9 cm. 2. Normal left lobe of the thyroid gland. RPTAT:AAJJ Physician Jhoan Date Time Electronically viewed and signed by Physician Jhoan on 01/18/2017 15:16 WIN/
--- NOTE | 2017-01-18 15:51 | RADRPT ---
PROCEDURE: XR Left Shoulder. CLINICAL INDICATION: Severe left shoulder pain TECHNIQUE: 3 views of the left shoulder are available for review. COMPARISON: None available FINDINGS: There is no acute fracture. Alignment is normal. There is mild acromioclavicular osteoarthrosis and mild glenohumeral osteoarthrosis. There is a sma ll subacromial enthesophyte. Soft tissues are grossly unremarkable. IMPRESSION: 1. No radiographic evidence of acute osseous abnormality. 2. Mild acromioclavicular and mild glenohumeral osteoarthrosis with small subacromial enthesophyte. RPTAT: UU .Mariano Yeh MD, MD Date Time Electronically viewed and signed by .Mariano Yeh MD, on 01/18/2017 15:50 .K/
[2017-01-18 16:00] VITALS: PULSE 78
[2017-01-18 16:44] VITALS: BP 148/70; PULSE 66; RESP 16
== END 2017-01-18 17:50 | disposition home or self-care (01) | DRG 313 ==
LOC: E/R 15:09 → MS3 22:56
PROVIDERS: ADMIT Internal Medicine; ATTEND Internal Medicine
DX: R07.89 Other chest pain (principal); I50.30 Unspecified diastolic (congestive) heart failure; Z68.42 Body mass index [BMI] 45.0-49.9, adult; I16.0 Hypertensive urgency; F32.9 Major depressive disorder, single episode, unspecified; F41.9 Anxiety disorder, unspecified; E66.01 Morbid (severe) obesity due to excess calories; G47.30 Sleep apnea, unspecified; M25.512 Pain in left shoulder; E04.1 Nontoxic single thyroid nodule; M19.90 Unspecified osteoarthritis, unspecified site; K21.9 Gastro-esophageal reflux disease without esophagitis; Z79.82 Long term (current) use of aspirin; Z90.710 Acquired absence of both cervix and uterus
CPT/HCPCS: 36415; 71010; 71275; 73030; 76536; 80053; 80061; 81001; 81003; 82550; 82553; 83036; 83735; 83880; 84155; 84439; 84443; 84484; 85025; 85378; 85610; 85651; 85730; 86430; 93005; 93306; 93970; 96374; J1650; J1940; Q9967

== ENCOUNTER 2017-05-10 12:54 | Emergency (ER) | payer BC ==
[~2017-05-10] VITALS: Wt 135.0 kg
[~2017-05-10 12:54] MED LIST changes: +ALPR0.5T6 PO; +ASPI-664 PO; -ASPI325T32 PO; -FURO-109 PO; -METO-429 PO; +METO-448 PO; +OMEP20CA16 PO; -OMEP20CA9 PO; +POTA10TA97 PO; -POTA20TA8 PO; +QUET25TA33 PO; -TRAM50TA2 PO
[2017-05-10] MEDS ORDERED: ASPIRIN 325 MG TAB PO STA (14:04)
--- NOTE | 2017-05-10 14:40 | RADRPT ---
PROCEDURE: XR Chest 1 View. CLINICAL INDICATION: Chest pain. TECHNIQUE: AP view of the chest was obtained. COMPARISON: DR CHEST 01/17/[address] January 17, 2017 FINDINGS: The heart size is within normal limits. Calcified atherosclerosis is noted in the aorta. Tracheal d eviation to the left is unchanged. Scattered atelectasis is identified in the left lower lobe. No co nsolidations are identified. No pneumothorax is seen. Osseous structures are intact. IMPRESSION: Calcified atherosclerosis in the aorta. Scattered atelectasis in the left lower lobe. Stable tracheal deviation to the left caused by an enlarged right thyroid as seen on prior CT. The left lower lobe lung nodule seen on prior CT is not well visualized on the current x-ray. If fol low-up of this nodule is needed repeat CT is recommended. RPTAT: AA .Fidencio Ott MD, Date Time Electronically viewed and signed by .Fidencio Ott MD, on 05/10/2017 14:39 .P/
[2017-05-10 17:49] VITALS: BP 148/67; PULSE 67; RESP 18; TEMP 98.5
[2017-05-10] MEDS ORDERED: KETOROLAC 30 MG INJ IV STA (17:51)
[2017-05-10] MEDS ORDERED: LIDOCAINE/MYLANTA 40 ML BTL PO ONE (18:00)
--- NOTE | 2017-05-10 19:42 | ERD ---
ER Documentation Chief Complaint Chief Complaint COUGH/SOB WITH MILD CP X 15 DAYS HPI This 57-year-old female presents with cough shortness of breath and mild chest pain that she actually feels in the back behind her chest on the left side. She also has most of her dyspnea on exertion. She has a history of mild congestive heart failure and is taking Lasix 40 mg twice daily. She states that it does not work as well as it used to. Denies fever and chills. States that she otherwise feels well. No nausea or vomiting ROS All systems reviewed and are negative except as per history of present illness. Medications Home Meds Active Scripts Hydralazine Hcl* (Apresoline*) 50 Mg Tab, 50 MG PO TID for 30 Days, TAB 3 Refills Prov:ROSSSABAS F 01/18/17 Reported Medications Alprazolam* (Alprazolam*) 0.5 Mg Tablet, 0.5 MG PO NEEDED Y for ANXIETY, TAB 01/17/17 Quetiapine Fumarate* (Quetiapine Fumarate*) 25 Mg Tablet, 25 MG PO HS Y for PRN , TAB 01/17/17 Potassium Chloride (Klor-Con) 10 Meq Tablet.sa, 10 MEQ PO QAM, TAB.SA 01/17/17 Omeprazole* (Omeprazole*) 20 Mg Capsule.dr, 20 MG PO QAM, #30 CAP 01/17/17 Metoprolol Tartrate* (Lopressor*) 25 Mg Tab, 25 MG PO BID, #60 TAB 01/17/17 Lisinopril* (Lisinopril*) 20 Mg Tablet, 20 MG PO BID, #30 TAB 01/17/17 Ibuprofen* (Ibuprofen*) 600 Mg Tablet, 600 MG PO Q8 Y for PAIN, TAB 01/17/17 Gabapentin* (Gabapentin*) 300 Mg Capsule, 300 MG PO DAILY, #30 CAP 01/17/17 Furosemide* (Furosemide*) 40 Mg Tablet, 40 MG PO BID, TAB 01/17/17 Clonidine Hcl* (Clonidine Hcl*) 0.1 Mg Tab, 0.1 MG PO DAILY Y for HTN, TAB 01/17/17 Aspirin* (Aspirin* EC) 81 Mg Tablet.dr, 81 MG PO DAILY, TAB 01/17/17 Allergies Allergies: Coded Allergies: No Known Allergy (Unverified , 05/10/17) PMhx/Soc History of Surgery: Yes (appedectomy and hysterectomy) Anesthesia Reaction: No Hx Neurological Disorder: No Hx Respiratory Disorders: Yes (sleep apnea) Hx Cardiac Disorders: Yes (hypertension) Hx Psychiatric Problems: Yes (depression, anxiety) Hx Miscellaneous Medical Probl: Yes (HTN, anxiety, depression, obesity, DM, CTS , hysterectomy, appendectomy, ) Hx Alcohol Use: No Hx Substance Use: No Hx Tobacco Use: No Smoking Status: Never smoker Physical Exam Vitals Vital Signs Date Time Temp Pulse Resp B/P Pulse Ox O2 Delivery O2 Flow Rate FiO2 05/10/17 17:49 98.5 67 18 148/67 98 Room Air 05/10/17 15:55 98.5 61 18 133/67 99 Room Air 05/10/17 13:57 98.0 70 18 125/66 97 Room Air 05/10/17 12:57 98.0 81 18 156/74 99 Physical Exam Const: [] No distress Head: Atraumatic Eyes: Normal Conjunctiva ENT: Normal External Ears, Nose and Mouth. Neck: Full range of motion..~ No meningismus. Resp: Clear to auscultation bilaterally Cardio: Regular rate and rhythm, no murmurs Abd: Soft, non tender, non distended. Normal bowel sounds Skin: No petechiae or rashes Back: No midline or flank tenderness Ext: No cyanosis, 2+ pitting edema bilateral lower extremities. Distal pulses intact Neur: Awake and alert oriented 3, no focal deficits Result Diagram: 05/10/17 1418 05/10/17 1418 Results 24 hrs Laboratory Tests Test 05/10/17 14:18 White Blood Count 9.510^3/ul Red Blood Count 4.4210^6/ul Hemoglobin 12.7g/dl Hematocrit 39.9% Mean Corpuscular Volume 90.3fl Mean Corpuscular Hemoglobin 28.7pg Mean Corpuscular Hemoglobin Concent 31.8g/dl Red Cell Distribution Width 13.5% Platelet Count 03904^3/UL Mean Platelet Volume 10.5fl Neutrophils % 63.1% Lymphocytes % 29.3% Monocytes % 5.2% Eosinophils % 1.4% Basophils % 0.6% Nucleated Red Blood Cells % 0.0/100WBC Neutrophils # 6.010^3/ul Lymphocytes # 2.810^3/ul Monocytes # 0.510^3/ul Eosinophils # 0.110^3/ul Basophils # 0.110^3/ul Nucleated Red Blood Cells # 0.010^3/ul Sodium Level 146mmol/L Potassium Level 3.3mmol/L Chloride Level 105mmol/L Carbon Dioxide Level 30mmol/L Anion Gap 14 Blood Urea Nitrogen 13mg/dl Creatinine 0.83mg/dl Glucose Level 104mg/dl Calcium Level 8.5mg/dl Troponin I < 0.012ng/ml B-Type Natriuretic Peptide 189PG/ML Current Medications Medications (Trade) Dose Ordered Sig/Latricia Route PRN Reason Start Time Stop Time Status Last Admin Dose Admin Aspirin (Aspirin) 325 mg ONCE STAT PO 05/10/17 14:04 05/10/17 14:06 DC 05/10/17 14:49 Miscellaneous Medication (Gi Cocktail (2)) 40 ml ONCE ONCE PO 05/10/17 18:00 05/10/17 18:01 DC 05/10/17 18:04 Ketorolac Tromethamine (Toradol) 30 mg ONCE STAT IV 05/10/17 17:51 05/10/17 17:52 DC 05/10/17 18:04 Procedures/MDM 57-year-old female shortness of breath. Does have history of congestive heart failure and does have a very mildly elevated BNP. No signs of pulmonary edema on x-ray. Was given an aspirin 325 mg. Was also given a GI cocktail. Physical exam was completely clear lungs. Patient was offered a dose of IV Lasix in the emergency room but declined. She was able to ambulate around the emergency room with no difficulties. No signs of acute cardiac ischemia. Patient is with her they prefer to go home if nothing serious was found. Admission was declined. I am going to discharge with instructions to continue Lasix 40 mg twice daily and follow-up with primary care doctor in 2-3 days. Strict return precautions for any acute changes. EKG interpretation: Normal sinus rhythm rate of 66, normal axis, no ST or T- wave changes concerning for acute ischemia, normal intervals. youth nutritional monitor interpretation: Normal sinus rhythm without arrhythmia Chest x-ray interpretation: I see no acute process, see no pulmonary edema, no infiltrates, no pneumothorax, no fractures. Departure Diagnosis: Primary Impression: Dyspnea on exertion Additional Impression: Chest pain Condition: Stable Patient Instructions: Dyspnea Referrals: OLIVIA LAUGHLIN) (PCP) Additional Instructions: Call your primary care doctor TOMORROW for an appointment during the next 2-3 days.See the doctor sooner or return here if your condition worsens before your appointment time. SHO AVILA DO May 10, 2017 19:42
== END 2017-05-10 18:41 | disposition home or self-care (01) ==
LOC: E/R 12:54
DX: R06.09 Other forms of dyspnea (principal); I50.9 Heart failure, unspecified; R07.9 Chest pain, unspecified; E11.9 Type 2 diabetes mellitus without complications; I10 Essential (primary) hypertension; E66.9 Obesity, unspecified; Z79.82 Long term (current) use of aspirin
CPT/HCPCS: 36415; 71010; 80048; 83880; 84484; 85025; 93005; 96374; 99285; J1885; Z7610

== ENCOUNTER 2017-06-29 12:19 | Emergency (ER) | payer BC ==
[~2017-06-29] VITALS: Wt 130.8 kg
--- NOTE | 2017-06-29 13:53 | RADRPT ---
PROCEDURE: XR Chest. CLINICAL INDICATION: Cough TECHNIQUE: Frontal chest x-ray was obtained. COMPARISON: Chest x-ray November 23, 2013 FINDINGS: Heart is not enlarged. Mediastinum is not widened. There is tracheal deviation to the left of the th oracic inlet likely representing enlarged right lobe of the thyroid gland. No hilar masses seen. Jaswant gs are clear of any infiltrates. There is no effusion or pneumothorax. IMPRESSION: No evidence for active cardiopulmonary disease. Question enlarged right lobe thyroid gland .Jose Bolton MD, MD Date Time Electronically viewed and signed by .Jose Bolton MD, MD on 06/29/2017 13:53 .A/
[2017-06-29] MEDS ORDERED: SODI126M NASAL (14:27)
[2017-06-29] MEDS ORDERED: GUAI-637 PO (14:27)
--- NOTE | 2017-06-29 14:38 | ERD ---
ER Documentation Chief Complaint Chief Complaint FEVER/COUGH/SORE THROAT X 7 DAYS HPI 57-year-old female complaining of cough and fever 7 days. States that her T- max at home was 37.5 C. Patient has nasal congestion, and nonproductive cough. Cough is worse at night. Patient reports sharp pain in her left upper back when she coughs. She has been taking Tylenol and Promethazine DM for pain and cough. Denies shortness of breath. Denies abdominal pain, vomiting, or diarrhea. Patient has history of diabetes, hypertension, and thyroid issues. ROS All systems reviewed and are negative except as per history of present illness. Medications Home Meds Active Scripts Guaifenesin* (Robitussin*) 100 Mg/5 Ml Syrup, 200 MG PO Q4H Y for COUGH, #120 ML Prov:YOHANA MACKEY. SERVICE WORKER HELPER 06/29/17 Sodium Chloride (Saline Nasal Mist) 126 Ml Mist, 2 SPRAY NASAL Q2H Y for NASAL CONGESTION, #1 BOTTLE Prov:YOHANA MACKEY. SERVICE WORKER HELPER 06/29/17 Hydralazine Hcl* (Apresoline*) 50 Mg Tab, 50 MG PO TID for 30 Days, TAB 3 Refills Prov:SABAS HAWKINS F 01/18/17 Reported Medications Alprazolam* (Alprazolam*) 0.5 Mg Tablet, 0.5 MG PO NEEDED Y for ANXIETY, TAB 01/17/17 Quetiapine Fumarate* (Quetiapine Fumarate*) 25 Mg Tablet, 25 MG PO HS Y for PRN , TAB 01/17/17 Potassium Chloride (Klor-Con) 10 Meq Tablet.sa, 10 MEQ PO QAM, TAB.SA 01/17/17 Omeprazole* (Omeprazole*) 20 Mg Capsule.dr, 20 MG PO QAM, #30 CAP 01/17/17 Metoprolol Tartrate* (Lopressor*) 25 Mg Tab, 25 MG PO BID, #60 TAB 01/17/17 Lisinopril* (Lisinopril*) 20 Mg Tablet, 20 MG PO BID, #30 TAB 01/17/17 Ibuprofen* (Ibuprofen*) 600 Mg Tablet, 600 MG PO Q8 Y for PAIN, TAB 01/17/17 Gabapentin* (Gabapentin*) 300 Mg Capsule, 300 MG PO DAILY, #30 CAP 01/17/17 Furosemide* (Furosemide*) 40 Mg Tablet, 40 MG PO BID, TAB 01/17/17 Clonidine Hcl* (Clonidine Hcl*) 0.1 Mg Tab, 0.1 MG PO DAILY Y for HTN, TAB 01/17/17 Aspirin* (Aspirin* EC) 81 Mg Tablet.dr, 81 MG PO DAILY, TAB 01/17/17 Allergies Allergies: Coded Allergies: No Known Allergy (Unverified , 05/10/17) PMhx/Soc History of Surgery: Yes (appedectomy and hysterectomy) Anesthesia Reaction: No Hx Neurological Disorder: No Hx Respiratory Disorders: Yes (sleep apnea) Hx Cardiac Disorders: Yes (HTN DM) Hx Psychiatric Problems: Yes (depression, anxiety) Hx Miscellaneous Medical Probl: Yes ( obesity, CTS) Hx Alcohol Use: No Hx Substance Use: No Hx Tobacco Use: No Physical Exam Vitals Vital Signs Date Time Temp Pulse Resp B/P Pulse Ox O2 Delivery O2 Flow Rate FiO2 06/29/17 12:30 98.4 101 18 147/76 99 Physical Exam General: Well-developed, morbidly obese, conscious and coherent, in no distress Skin: Warm and dry without rash, good texture and turgor Head: Normocephalic without evidence of trauma Eyes: Sclera and conjunctivae normal; pupils equal, round, and reactive to light; extraocular movements are intact Ears: Canals are patent. Tympanic membranes are clear Nose/Face: Clear rhinorrhea Mouth/throat: Mucous membranes are moist. Posterior pharynx clear without erythema or exudates Neck: Supple without meningismus or adenopathy. Carotids are equal. Trachea midline. No bruits or JVD Chest: Normal AP diameter. Good expansion without retractions. Nontender. Lungs are clear to auscultate bilaterally with good tidal volume Heart: Regular rate and rhythm. No murmur, rub, or gallops heard Extremities: Full range of motion. Good strength bilaterally. No clubbing, cyanosis, or edema. Peripheral pulses are intact. Sensation intact Neuro: Alert and oriented 4, GCS 15. Cranial nerves grossly intact. Motor and sensory exams nonfocal. Moves all extremities. Speech clear. Gait normal Results 24 hrs PROCEDURE: XR Chest. CLINICAL INDICATION: Cough TECHNIQUE: Frontal chest x-ray was obtained. COMPARISON: Chest x-ray November 23, 2013 FINDINGS: Heart is not enlarged. Mediastinum is not widened. There is tracheal deviation to the left of the thoracic inlet likely representing enlarged right lobe of the thyroid gland. No hilar masses seen. Lungs are clear of any infiltrates. There is no effusion or pneumothorax. IMPRESSION: No evidence for active cardiopulmonary disease. Question enlarged right lobe thyroid gland .Jose Bolton MD, Date Time Electronically viewed and signed by .Jose Bolton MD, on 06/29/2017 13: 53 .A/ CC: YOHANA MACKEY. SERVICE WORKER HELPER Procedures/MDM Patient is afebrile, in no respiratory distress. Lungs are clear to auscultate. I doubt that patient has pneumonia or bronchitis. However, patient insists on getting a chest x-ray. Chest x-rays negative for acute cardiopulmonary processes. The large right lobe of thyroid is noted on chest x-ray. Likely patient's symptoms are result of viral upper respiratory infection. Patient appears well, stable for discharge and outpatient management. Medical decision making shared with patient and family. Education provided to patient and family. Patient and family expressed understanding of the plan. Medications on discharge: Saline nasal spray, Robitussin. Follow-up: Primary care provider in 2-3 days or return to ED if worse. Disclaimer: Inadvertent spelling and grammatical errors are likely due to EHR/ dictation software use and do not reflect on the overall quality of patient care. Also, please note that the electronic time recorded on this note does not necessarily reflect the actual time of the patient encounter. Departure Diagnosis: Primary Impression: URI (upper respiratory infection) URI type: acute nasopharyngitis (common cold) Qualified Code: J00 - Acute nasopharyngitis Condition: Stable Patient Instructions: Adult Self-Care for Colds Additional Instructions: Call your primary care doctor TOMORROW for an appointment during the next 2-3 days.See the doctor sooner or return here if your condition worsens before your appointment time. YOHANA MACKEY NP Jun 29, 2017 14:38
== END 2017-06-29 14:40 | disposition home or self-care (01) ==
LOC: FTE 12:19
DX: J00 Acute nasopharyngitis [common cold] (principal); I10 Essential (primary) hypertension; E11.9 Type 2 diabetes mellitus without complications; E66.9 Obesity, unspecified; Z79.82 Long term (current) use of aspirin; Z79.84 Long term (current) use of oral hypoglycemic drugs
CPT/HCPCS: 71010

== ENCOUNTER 2018-04-27 18:03 | Emergency (ER) | END 2018-04-27 19:21 | disposition home or self-care (01) ==

== ENCOUNTER 2018-05-01 09:43 | Emergency (ER) | END 2018-05-01 11:18 | disposition home or self-care (01) ==

== ENCOUNTER 2018-05-03 12:32 | Emergency (ER) | END 2018-05-03 13:29 | disposition home or self-care (01) ==